=== PATIENT | female | born 1960 | race Caucasian/White ===

== ENCOUNTER 2017-09-05 21:08 | Emergency (ER) | payer MEDICARE ==
[~2017-09-05] VITALS: Ht 165.1 cm; Wt 65.9 kg
[~2017-09-05 21:08] MED LIST: CELE-193 PO; EST1T PO; MORP30TA60 PO; NORCO10T PO; ONDA8TAB9 PO; TEMA15CA5 PO; TOF25T PO; VAL5T PO
[2017-09-05 21:14] VITALS: BP 134/98
[2017-09-05] MEDS ORDERED: LIDOcaine 1.5% w/epinephrine 1:200,000 5ml ampul IJ ONE (21:25)
[2017-09-05] MEDS ORDERED: TETanus/Pertussis (Acell)/Diphther VAC/PF (Tdap-Adult) 0.5ml syringe IM ONE (21:25)
[2017-09-05] MEDS ORDERED: bacitracin 15gm ointment TP ONE (21:25)
== END 2017-09-05 22:53 | disposition home or self-care (01) ==
LOC: ER 21:08
DX: S91.121A Laceration with foreign body of right great toe without damage to nail, initial encounter (principal); J45.909 Unspecified asthma, uncomplicated; I49.9 Cardiac arrhythmia, unspecified; G89.29 Other chronic pain; Z98.890 Other specified postprocedural states; Z88.8 Allergy status to other drugs, medicaments and biological substances; Z79.2 Long term (current) use of antibiotics; Z79.899 Other long term (current) drug therapy; X99.8XXA Assault by other sharp object, initial encounter; Y93.89 Activity, other specified; Y92.89 Other specified places as the place of occurrence of the external cause; Y99.8 Other external cause status
CPT/HCPCS: 12042; 73630; 90471; 90715; 99284; A6449; J3490

== ENCOUNTER 2017-09-09 11:30 | Emergency (ER) | payer MEDICARE ==
[~2017-09-09] VITALS: Ht 165.1 cm; Wt 65.9 kg
[2017-09-09 11:35] VITALS: BP 121/70
[2017-09-09] MEDS ORDERED: CEPH-572 PO (13:08)
== END 2017-09-09 13:31 | disposition home or self-care (01) ==
LOC: ER 11:30
DX: S91.311D Laceration without foreign body, right foot, subsequent encounter (principal); L03.115 Cellulitis of right lower limb; J45.909 Unspecified asthma, uncomplicated; G89.29 Other chronic pain; I49.9 Cardiac arrhythmia, unspecified; Z98.890 Other specified postprocedural states; Z88.8 Allergy status to other drugs, medicaments and biological substances; Z79.899 Other long term (current) drug therapy; Y08.89XD Assault by other specified means, subsequent encounter
CPT/HCPCS: 99283

== ENCOUNTER 2019-01-18 11:04 | Emergency (ER) | payer MEDICARE ==
[~2019-01-18] VITALS: Ht 165.1 cm; Wt 72.0 kg
[2019-01-18 11:11] VITALS: BP 147/76
[2019-01-18] MEDS ORDERED: SUMAtriptan succ. 6 MG/0.5ml vial SQ ONE (12:25)
[2019-01-18] MEDS ORDERED: ACET-1008 PO (12:33)
[2019-01-18] MEDS ORDERED: AMOX-422 PO (12:33)
== END 2019-01-18 13:00 | disposition home or self-care (01) ==
LOC: ER 11:05
DX: K08.89 Other specified disorders of teeth and supporting structures (principal); K03.7 Posteruptive color changes of dental hard tissues; R51 Headache; J45.909 Unspecified asthma, uncomplicated; G89.29 Other chronic pain; F41.9 Anxiety disorder, unspecified; F32.9 Major depressive disorder, single episode, unspecified; Z98.890 Other specified postprocedural states; Z88.8 Allergy status to other drugs, medicaments and biological substances; Z79.899 Other long term (current) drug therapy
CPT/HCPCS: 96372; 99283; J3030

== ENCOUNTER 2019-09-07 10:55 | Day surgery (SDC) | payer MEDICARE ==
[2019-09-01 16:26] LABS: BASOPHILS # (AUTO) 0.1 X10'3 (0-0.2); BASOPHILS % (AUTO) 0.8 % (0-1); EOSINOPHILS # (AUTO) 0.1 X10'3 (0-0.9); EOSINOPHILS % (AUTO) 1.6 % (0-6); LYMPHOCYTES # (AUTO) 2.4 X10'3 (1.1-4.8); LYMPHOCYTES % (AUTO) 34.9 % (21-51); MEAN CORPUSCULAR HEMOGLOBIN 31.1 PG (27.0-31.0); MEAN CORPUSCULAR HGB CONC 33.2 g/dL (33.0-36.5); MEAN CORPUSCULAR VOLUME 93.8 FL (78-98); MEAN PLATELET VOLUME 8.2 FL (7.4-10.4); MONOCYTES # (AUTO) 0.5 X10'3 (0-0.9); MONOCYTES % (AUTO) 7.1 % (2-12); NEUTROPHILS # (AUTO) 3.8 X10'3 (1.8-7.7); NEUTROPHILS % (AUTO) 55.6 % (42-75); PRE OP HEMOGLOBIN 12.6 g/dL (12.0-16.0); PRE OP PLATELET COUNT 356 X10'3 (140-440); RED BLOOD COUNT 4.05 X10'6 (4.20-5.60); RED CELL DISTRIBUTION WIDTH 12.9 % (11.5-14.5)
[2019-09-01 16:39] LABS: ALBUMIN 3.9 G/DL (3.4-5.0); ALBUMIN/GLOBULIN RATIO 1.1 (1.1-1.5); ALKALINE PHOSPHATASE 86 IU/L (46-116); BLOOD UREA NITROGEN 10 MG/DL (7-18); BUN/CREATININE RATIO 9.2 (6.6-38.0); CALCIUM 8.7 MG/DL (8.5-10.1); CHLORIDE 105 MMOL/L (99-107); CREATININE 1.09 MG/DL (0.40-0.90); PRE OP ALT 34 U/L (30-65); PRE OP ANION GAP 4 (8-16); PRE OP AST 21 U/L (10-37); PRE OP BILIRUB, TOTAL 0.2 MG/DL (0.0-1.0); PRE OP GLUCOSE 101 MG/DL (70-104); PRE OP POTASSIUM 3.6 MMOL/L (3.4-5.1); PRE OP SODIUM 142 MMOL/L (135-145); TOTAL CARBON DIOXIDE 33.4 MMOL/L (24-32); TOTAL PROTEIN 7.4 G/DL (6.4-8.2); eGFR 52 ML/MIN
[2019-09-07] VITALS (10 sets, daily range): BP systolic 115–137; BP diastolic 69–96
[~2019-09-07] VITALS: Ht 165.1 cm; Wt 70.3 kg
[~2019-09-07 10:55] MED LIST changes: -CELE-193 PO; +CLON-528 PO; -EST1T PO; +ESTR0.5T PO; +HYDR-4353 PO; +IMIP25TA7 PO; +KRATOM PO; +MAGN500C16 PO; -MORP30TA60 PO; -NORCO10T PO; -ONDA8TAB9 PO; +SENN-263 PO; -TEMA15CA5 PO; -TOF25T PO; -VAL5T PO; +cefazolin/dext.iso 2gm/50ml 50 ML IV ONE; +famotidine 20mg tablet PO ONE; +ringers solution, lacted 1,000 ML IV SCH
[2019-09-07] MEDS ORDERED: ringers solution, lacted 1,000 ML IV SCH ×2 (13:01→14:28)
[2019-09-07] MEDS ORDERED: proCHLORperazine 10 MG/2 ml inj IV PRN ×2 (13:05→14:30)
[2019-09-07] MEDS ORDERED: morphine 4 MG/ML inj SYRINge IV PRN ×2 (13:05→14:30)
[2019-09-07] MEDS ORDERED: meperidine/PF 25mg/ml syringe IV PRN ×6 (13:05→14:30)
[2019-09-07] MEDS ORDERED: ondansetron/PF 4mg/2ml inj IV PRN ×2 (13:05→14:30)
[2019-09-07] MEDS ORDERED: morphine 2 MG/ML inj. syringe IV PRN ×2 (13:05→14:30)
[2019-09-07] MEDS ORDERED: BUPIVAcaine/PF 2.5mg/ml (0.25%) 10ml vial ONE (13:38)
[2019-09-07] MEDS ORDERED: LIDOcaine 1% W/epiNEPHrine 1:100,000 20ml vial ONE (13:44)
[2019-09-07] MEDS ORDERED: fentaNYL/PF 50MCG/1 ML 2ML syringe ONE (13:54)
[2019-09-07] MEDS ORDERED: ketamine 50mg/5ml syringe ONE (13:54)
[2019-09-07] MEDS ORDERED: MIDAZolam 5mg/5ml vial ONE (13:57)
[2019-09-07] MEDS ORDERED: LIDOcaine 1%/PF 5ML 10 MG/ML VIAL ONE (14:21)
[2019-09-07] MEDS ORDERED: propofol inj 20 ML IV ONE (14:21)
--- NOTE | 2019-09-07 14:24 | NUR ---
RECEIVED FROM OR VIA [facility], [place] ACCOMPANIED BY ANESTHESIOLOGIST DR JARAMILLO, REPORT GIVEN. 20 GAUGE PIV L WRIST PATENT AND RUNNING LR AT 100 ML/HR. AWAKE AND ALERT WITH COMPLAINT OF PAIN AT A LEVEL 2 AT THIS TIME. SMALL ISLAND DRESSING L UA CDI. VSS, SKIN PINK AND WARM, PERIPHERAL PULSES GOOD.
--- NOTE | 2019-09-07 15:45 | NUR ---
TOLERATING FLUIDS, UP TO VOID, VSS, 20 GAUGE PIV L WRIST D/CD CATH TIP INTACT. AWAKE AND ALERT WITH COMPLAINT OF PAIN AT A LEVEL 2 AT THIS TIME. SMALL ISLAND DRESSING L UA CDI. , SKIN PINK AND WARM, PERIPHERAL PULSES GOOD. DISCHARGE INSTRUCTIONS GIVEN AND PT VERBALIZED UNDERSTANDING. TRANSPORTED VIA WHEELCHAIR TO SIG OTHER IN PRIVATE VEHICLE TO HOME.
== END 2019-09-07 15:44 | disposition home or self-care (01) ==
LOC: PAS 10:55
PROVIDERS: ATTEND Surgery
DX: D04.62 Carcinoma in situ of skin of left upper limb, including shoulder (principal); I48.91 Unspecified atrial fibrillation; I47.1 Supraventricular tachycardia; G54.0 Brachial plexus disorders; G89.29 Other chronic pain; G43.909 Migraine, unspecified, not intractable, without status migrainosus; Z90.710 Acquired absence of both cervix and uterus; Z98.890 Other specified postprocedural states; Z79.899 Other long term (current) drug therapy; Z88.8 Allergy status to other drugs, medicaments and biological substances; Z72.89 Other problems related to lifestyle; Z90.49 Acquired absence of other specified parts of digestive tract; Z87.01 Personal history of pneumonia (recurrent); Z11.59 Encounter for screening for other viral diseases; Z80.59 Family history of malignant neoplasm of other urinary tract organ
CPT/HCPCS: 24076; 36415; 80053; 82948; 85025; 93005; 93306; J2250; J2704; J3010; J3490; J7120; U0003; A4618; A7000

== ENCOUNTER 2020-02-23 08:56 | Emergency (ER) | payer MEDICARE ==
[~2020-02-23] VITALS: Ht 165.1 cm; Wt 71.9 kg
[~2020-02-23 08:56] MED LIST changes: -cefazolin/dext.iso 2gm/50ml 50 ML IV ONE; -famotidine 20mg tablet PO ONE; -ringers solution, lacted 1,000 ML IV SCH
[2020-02-23 09:28] VITALS: BP 122/77
[2020-02-23] MEDS ORDERED: diphenhydrAMINE 50 mg/ml inj IV ONE (09:55)
[2020-02-23] MEDS ORDERED: proCHLORperazine 10 MG/2 ml inj IV ONE (09:55)
[2020-02-23] MEDS ORDERED: normal saline 1000ml 1,000 ML IV ONE ×2 (09:55)
[2020-02-23] MEDS ORDERED: ketorolac tromethamine 15mg/ml inj. IM ONE (10:05)
[2020-02-23] MEDS ORDERED: SUMAtriptan succ. 6 MG/0.5ml vial SQ ONE (10:05)
== END 2020-02-23 10:50 | disposition home or self-care (01) ==
LOC: ER 08:56
DX: G43.909 Migraine, unspecified, not intractable, without status migrainosus (principal); J45.909 Unspecified asthma, uncomplicated; G89.29 Other chronic pain; F41.9 Anxiety disorder, unspecified; F32.9 Major depressive disorder, single episode, unspecified; Z98.890 Other specified postprocedural states; Z88.8 Allergy status to other drugs, medicaments and biological substances; Z79.899 Other long term (current) drug therapy
CPT/HCPCS: 96372; 99284; J1885; J3030

== ENCOUNTER 2021-08-04 18:01 | Emergency (ER) | payer MEDICARE ==
[~2021-08-04] VITALS: Ht 165.1 cm; Wt 68.2 kg
[~2021-08-04 18:01] MED LIST changes: -MAGN500C16 PO; +MAGN500C4 PO
[2021-08-04] MEDS ORDERED: normal saline 1000ml 1,000 ML IV ONE (18:30)
[2021-08-04 18:45] LABS: BASOPHILS % (AUTO) 0.6 % (0-1); EOSINOPHILS # (AUTO) 0.2 X10'3 (0-0.9); EOSINOPHILS % (AUTO) 3.3 % (0-6); HEMATOCRIT 37.3 % (35.0-45.0); HEMOGLOBIN 12.6 g/dl (12.0-16.0); LYMPHOCYTES # (AUTO) 2.3 X10'3 (1.1-4.8); LYMPHOCYTES % (AUTO) 32.2 % (21-51); MEAN CORPUSCULAR HEMOGLOBIN 31.5 PG (27.0-31.0); MEAN CORPUSCULAR HGB CONC 33.8 g/dL (33.0-36.5); MEAN CORPUSCULAR VOLUME 93.3 FL (78-98); MEAN PLATELET VOLUME 8.1 FL (7.4-10.4); MONOCYTES # (AUTO) 0.8 X10'3 (0-0.9); MONOCYTES % (AUTO) 10.7 % (2-12); NEUTROPHILS # (AUTO) 3.9 X10'3 (1.8-7.7); NEUTROPHILS % (AUTO) 53.2 % (42-75); PLATELET COUNT 417 X10'3 (140-440); RED CELL DISTRIBUTION WIDTH 13.1 % (11.5-14.5); WHITE BLOOD COUNT 7.3 X10'3 (4.5-11.0)
[2021-08-04 18:55] LABS: ALANINE AMINOTRANSFERASE 41 U/L (12-78); ALBUMIN 3.6 G/DL (3.4-5.0); ALKALINE PHOSPHATASE 78 IU/L (46-116); ANION GAP 7 (8-16); ASPARTATE AMINO TRANSFERASE 26 U/L (10-37); BILIRUBIN,TOTAL 0.3 MG/DL (0.1-1.0); BLOOD UREA NITROGEN 15 MG/DL (7-18); BUN/CREATININE RATIO 16.1 (6.6-38.0); CALCIUM 8.2 MG/DL (8.5-10.1); CHLORIDE 108 MMOL/L (99-107); CREATININE 0.93 MG/DL (0.40-0.90); GLUCOSE 101 MG/DL (70-104); LIPASE < 50 U/L (73-393); POTASSIUM 3.8 MMOL/L (3.5-5.1); SODIUM 145 MMOL/L (135-145); TOTAL PROTEIN 7.1 G/DL (6.4-8.2); eGFR 62 ML/MIN
[2021-08-04] MEDS ORDERED: POLY119P2 PO (20:04)
[2021-08-04] MEDS ORDERED: GLYC-23 RC (20:04)
[2021-08-04 21:03] VITALS: BP 122/86
== END 2021-08-04 21:07 | disposition home or self-care (01) ==
LOC: ER 18:02
DX: K59.00 Constipation, unspecified (principal); R10.84 Generalized abdominal pain; G43.909 Migraine, unspecified, not intractable, without status migrainosus; J45.909 Unspecified asthma, uncomplicated; G89.29 Other chronic pain; F41.9 Anxiety disorder, unspecified; F32.A Depression, unspecified; Z90.710 Acquired absence of both cervix and uterus; Z98.890 Other specified postprocedural states; Z88.8 Allergy status to other drugs, medicaments and biological substances; Z79.899 Other long term (current) drug therapy
CPT/HCPCS: 36415; 74176; 80053; 83690; 85025; 96360; 96361; 99284; J7030

== ENCOUNTER 2021-11-18 10:44 | Outpatient (CLI) | payer MEDICARE ==
[~2021-11-18 10:44] MED LIST changes: +GLYC-23 RC; +POLY119P2 PO
== END 2021-11-18 23:59 | disposition home or self-care (01) ==
LOC: RAD 10:44
PROVIDERS: ATTEND Family Medicine
DX: R91.1 Solitary pulmonary nodule (principal); Z90.49 Acquired absence of other specified parts of digestive tract; Z98.890 Other specified postprocedural states
CPT/HCPCS: 71250

== ENCOUNTER → 2023-02-16 | Outpatient (CLI) | payer MEDICARE ==
[~2023-02-16] MED LIST changes: -GLYC-23 RC; +IMIPRAMINE HCL 25 MG PO; -KRATOM PO; -MAGN500C4 PO; +NALO4SPR BOTHNARES; +ONDA8TAB13 PO; -POLY119P2 PO; -SENN-263 PO; +SUMA25TA35 PO; +[UNRECOGNIZED DRUG - CODE]
[2023-02-16 16:58] LABS: ALBUMIN 3.6 G/DL (3.4-5.0); ANION GAP 6 (8-16); BLOOD UREA NITROGEN 14 MG/DL (7-18); BUN/CREATININE RATIO 16.3 (10.0-20.0); CALCIUM 9.3 MG/DL (8.5-10.1); CHLORIDE 100 MMOL/L (99-107); CREATININE 0.86 MG/DL (0.40-0.90); GLUCOSE 100 MG/DL (70-104); POTASSIUM 4.1 MMOL/L (3.5-5.1); SODIUM 137 MMOL/L (135-145); TOTAL CARBON DIOXIDE 31.4 MMOL/L (24-32); eGFR 67 ML/MIN
== END | disposition home or self-care (01) ==
LOC: LAB 16:06
PROVIDERS: ATTEND Surgery
DX: Z01.818 Encounter for other preprocedural examination (principal)
CPT/HCPCS: 36415; 80048

== ENCOUNTER 2023-04-10 10:10 | Outpatient (CLI) | payer MEDICARE ==
[~2023-04-10 10:10] MED LIST changes: +CLON-528 PO; -CLON-850 PO
== END 2023-04-10 23:59 | disposition home or self-care (01) ==
LOC: RAD 10:10
PROVIDERS: ATTEND Family Medicine
DX: I67.82 Cerebral ischemia (principal); G93.6 Cerebral edema; R26.89 Other abnormalities of gait and mobility; M48.02 Spinal stenosis, cervical region; M47.812 Spondylosis without myelopathy or radiculopathy, cervical region; M54.2 Cervicalgia
CPT/HCPCS: 70551; 72141

== ENCOUNTER → 2023-04-10 | Outpatient (CLI) | payer MEDICARE ==
[~2023-04-10] MED LIST changes: -CLON-528 PO; +CLON-850 PO; -ESTR0.5T PO; +ESTR0.5T36 PO
== END | disposition home or self-care (01) ==
LOC: RAD 10:00
PROVIDERS: ATTEND Surgery
DX: Z01.818 Encounter for other preprocedural examination (principal)
CPT/HCPCS: 74248; 74250

== ENCOUNTER 2023-04-28 11:16 | Outpatient (CLI) | payer MEDICARE ==
[2023-04-28] MEDS ORDERED: iohexol 300mg/ml 100ml inj. ONE (11:23)
== END 2023-04-28 23:59 | disposition home or self-care (01) ==
LOC: 64 CT 11:16
PROVIDERS: ATTEND Surgery
DX: Z01.818 Encounter for other preprocedural examination (principal); K76.0 Fatty (change of) liver, not elsewhere classified; Z90.49 Acquired absence of other specified parts of digestive tract
CPT/HCPCS: 74177; J3490; Q9967